=== PATIENT | female | born 1990 | race Caucasian/White ===

== ENCOUNTER 2016-07-05 09:48 | Emergency (ER) | payer BC, OTHER ==
[2016-07-05] MEDS ORDERED: KETOROLAC 30 MG/ML VIAL (J1885) As Ordered ONE (10:33)
[2016-07-05 10:45] LABS: BASO % 0.2 % (0.0-1.0); EOS # 0.1 K/mm3 (0.0-0.50); EOS % 0.9 % (0.0-3.0); LARGE UNSTAINED CELL # 0.2 K/mm3 (0.0-0.4); LARGE UNSTAINED CELL % 2.5 % (0.0-4.0); LYMPH # 1.8 K/mm3 (1.5-6.5); LYMPH % 28.5 % (24.0-44.0); MEAN CORPUSCULAR HEMOGLOBIN 30.2 pg (27.0-33.0); MEAN CORPUSCULAR VOLUME 88.9 fl (80.0-96.0); MONO # 0.6 K/mm3 (0.0-0.8); MONO % 9.3 % (0.0-5.0); NEUTROPHILS # 3.7 K/mm3 (1.8-7.7); NEUTROPHILS % 58.6 % (36.0-66.0); PLATELET COUNT, AUTOMATED 273 k/mm3 (150-450); RED CELL DISTRIBUTION WIDTH 11.6 % (11.5-14.5); WHITE BLOOD COUNT 6.3 K/mm3 (4.0-10.0)
[2016-07-05 11:09] LABS: ANION GAP 8 MEQ/L (8-16); BLOOD UREA NITROGEN 12 MG/DL (7-18); CALCIUM LEVEL 9.1 MG/DL (8.5-10.1); CARBON DIOXIDE LEVEL 29 MEQ/L (21-32); CHLORIDE LEVEL 103 MEQ/L (98-107); CREATININE FOR GFR 0.84 MG/DL (0.55-1.02); GLOMERULAR FILTRATION RATE > 60.0 (>60); GLUCOSE, FASTING 103 MG/DL (70-105); SODIUM LEVEL 140 MEQ/L (136-145)
--- NOTE | 2016-07-05 11:22 | REP ---
ABDOMINAL SERIES, 07/05/2016: INDICATION: Abdominal pain. COMPARISON: CT abdomen and pelvis 06/07/2016 which include lung bases in field of view. PA CHEST: FINDINGS: The heart is of normal size and configuration. The lungs are clear bilaterally. Bones and soft tissues are within normal limits. IMPRESSION: No acute disease. FLAT AND UPRIGHT KUB: The bowel gas pattern is nonspecific. There is moderate stool in the ascending colon and in the rectosigmoid colon. There are no abnormal air fluid levels or free intraperitoneal air. Bones and soft tissues within normal limits. IMPRESSION: Moderate stool within the colon. Nonspecific bowel gas pattern, no free intraperitoneal air. MTDD
--- NOTE | 2016-07-05 12:46 | EDDOCDS ---
Physician Documentation [facility] Name: Veronica Calabrese Age: 25 yrs Sex: Female : 1990 Arrival Date: 07/05/2016 Time: 09:48 Bed I2 / M2 Private MD: No Pcp Disposition: 07/05/16 11:50 Discharged to Home/Self Care. Impression: Chest pain on breathing, Palpitations, Hypokalemia, Hypothyroidism, unspecified - elevated TSH, Constipation, Abdominal and pelvic pain - LLQ. - Condition is Stable. - Discharge Instructions: Chest Wall Pain, Constipation, Adult, Palpitations, Hypokalemia. - Prescriptions for Ultram 50 mg Oral Tablet - take 1 tablet by ORAL route every 6 hours As needed MDD: 4 tabs; 16 tablet. Miralax 17 gram/dose - take 17 gram by ORAL route once daily As needed dilute in 8 ounces of water or juice; 1 bottle. Potassium Chloride 20 mEq Oral Tablet Extended Release - take 1 tablet by ORAL route once daily for 14 days; 14 tablet. - Medication Reconciliation, Local Pharmacy Hours form. - Follow up: Emergency Department; When: As needed; Reason: Worsening of conditions. Follow up: Private Physician; When: Call to arrange an appointment; Reason: Wound/Symptom Recheck, Recheck today's complaints, Continuance of care, recheck potassium level, evaluate thyroid function. . - Problem is an ongoing problem. - Symptoms have improved. Historical: - Allergies: Morphine; PENICILLINS; - Home Meds: 1. Ambien 10 mg oral tab once daily 2. Maxalt 10 mg oral tab as needed - PMHx: Asthma; Migraine Headaches; - PSHx: Myringotomy; - Social history: Smoking status: Patient states was never smoker of tobacco. No barriers to communication noted, The patient speaks fluent Kazakh, Speaks appropriately for age. - : The pt / caregiver states he / she is not on anticoagulants. Home medication list is obtained from the patient. - Exposure Risk Screening:: None identified. 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 4 in. (162.56 cm); Pain 8/10; 11:58 BP 119 / 72 RA Supine (auto/reg); Pulse 89; Resp 18; Temp 96.8; Pulse Ox 99% on R/A; bnb Pain 6/10; 09:50 Body Mass Index 21.46 (56.70 kg, 162.56 cm) sew MDM: 10:18 IV Saline Lock ordered. cc10 10:18 Undress patient appropriately for examination ordered. cc10 10:19 ketorolac 30 mg IVP once ordered. cc10 10:19 UCG by Nursing ordered. cc10 10:20 ECG WITH READING ER PHYS+CARDIAG ordered. EDMS 10:20 Basic Metabolic Profile Ordered. EDMS 10:20 CBC with Diff Ordered. EDMS 10:20 Cardiac Injury Profile Ordered. EDMS 10:20 D-Dimer Quant Ordered. EDMS 10:20 Troponin Ordered. EDMS 10:20 TSH w/o Free T4 Ordered. EDMS 10:20 Abdomen, Flat\E\Upright,PA Chest Ordered. EDMS 10:21 UA Ordered. EDMS 10:54 CBC with Diff Reviewed. cc10 10:54 UA Reviewed. cc10 10:54 D-Dimer Quant Reviewed. cc10 11:22 Financial registration complete. lg 11:34 Basic Metabolic Profile Reviewed. cc10 11:34 TSH w/o Free T4 Reviewed. cc10 11:34 Cardiac Injury Profile Reviewed. cc10 11:34 Troponin Reviewed. cc10 Point of Care Testing: Urine : 10:41 hCG Reading: Negative; Control Reading: Positive; mk4 Ranges: Administered Medications: 10:46 Drug: ketorolac 30 mg [ketorolac 30 mg/mL (1 mL) injection solution (1 mL)] Route: IVP; mk4 Site: left antecubital; Signatures: Dispatcher [employer] EDMS Sanjana Veliz, Reg Reg lg Mihai Maldonado RN RN mlb1 Joana Loera RN RN Kaiden Wade PA-C PA-C cc10 Eugenia Castro RN mk4 MTDD
--- NOTE | 2016-07-05 12:46 | EDDOCDS ---
Nurse's Notes [facility] Name: Veronica Calabrese Age: 25 yrs Sex: Female : 1990 Arrival Date: 07/05/2016 Time: 09:48 Bed I2 / M2 Private MD: No Pcp Diagnosis: Chest pain on breathing;Palpitations;Hypokalemia;Hypothyroidism, unspecified-elevated TSH;Constipation;Abdominal and pelvic pain-LLQ Presentation: 07/05 09:53 Presenting complaint: Patient states: Chest pain and left side abdominal pain began mlb1 Saturday night with nausea. Risk factors: the patient reports no vaginal bleeding. Adult Sepsis Screening: The patient does not have new or worsening altered mentation. Patient's respiratory rate is less than 22. Systolic blood pressure is greater than 100. Patient has a qSOFA score of 0- Negative Sepsis Screen. Suicide/Homicide risk assessment- the patient denies having any suicidal and/or homicidal ideations and does not present with any other emotional, behavioral or mental health complaints. 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 Transition of care: patient was not received from another setting of care. 09:53 Acuity: NATASHA Level 3 mlb1 09:53 Method Of Arrival: Walkin/Carried/Asstd mlb1 Triage Assessment: 09:55 General: Appears uncomfortable, Behavior is appropriate for age, cooperative. Pain: mlb1 Location: mid-sternal area, LUQ LLQ Pain currently is 8 out of 10 on a pain scale. HIV screening NA for this visit Offered previously. GI: Reports nausea. 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 Ambien 10 mg oral tab once daily 2. Maxalt 10 mg oral tab as needed - PMHx: Asthma; Migraine Headaches; - PSHx: Myringotomy; - Social history: Smoking status: Patient states was never smoker of tobacco. No barriers to communication noted, The patient speaks fluent Divehi, Speaks appropriately for age. - : The pt / caregiver states he / she is not on anticoagulants. Home medication list is obtained from the patient. - Exposure Risk Screening:: None identified. Screenin:39 Screening information is obtained from the patient. Fall risk: No risks identified. jjr Assistance ADL's: requires no assistance with activities of daily living. Abuse/DV Screen: The patient / caregiver reports he/she is: not in a situation that causes fear, pain or injury. Nutritional screening: No deficits noted. Advance Directives: There is no active DNR order. home support is adequate. Assessment: 10:37 General: Appears in no apparent distress, slender, well nourished, well groomed, jjr Behavior is appropriate for age. Cardiovascular: Chest pain quality is squeezing, is located in left chest wall is alleviated by placing pressure to region upon nurse entrance to room. Respiratory: No deficits noted. GI: Abdomen is flat, Bowel sounds present X 4 quads. Abd is soft X 4 quads Abd is tender to palpation in left lower quadrant Reports lower abdominal pain, normal bowel habits. Derm: No deficits noted. 12:44 General: Appears in no apparent distress, reports decrease in LLQ pain since arrival no jjr change in chest discomfort. Vital Signs: 09:50 BP 148 / 93; Pulse 109; Resp 16; Temp 98.5(O); Pulse Ox 100% on R/A; Weight 56.7 kg; sew Height 5 ft. 4 in. (162.56 cm); Pain 8/10; 11:58 BP 119 / 72 RA Supine (auto/reg); Pulse 89; Resp 18; Temp 96.8; Pulse Ox 99% on R/A; bnb Pain 6/10; 09:50 Body Mass Index 21.46 (56.70 kg, 162.56 cm) [facility] [place] Vitals: 09:50 Log In Time: July 05, 2016 at 09:45. [facility] [place] ED Course: 09:49 Patient visited by Laura Mock. sew 09:49 Patient moved to Waiting sew 09:50 No Pcp is Private Physician. sew 09:51 Patient visited by Laura Mock. sew 09:51 Patient moved to Pre RCE sew 09:53 Patient visited by Mihai Maldonado, SADE. mlb1 09:54 Triage Initiated mlb1 09:55 Patient visited by Mihai Maldonado, RN. mlb1 10:05 Patient moved to Triage 2 hs1 10:10 Kaiden Saldana PA-C is PHCP. cc10 10:10 Laura Waldrop MD is Attending Physician. cc10 10:10 Patient visited by Kaiden Saldana PA-C. cc10 10:10 Patient visited by Kaiden Saldana PA-C. cc10 10:26 Patient moved to I2 / M2 mk4 10:32 UA Sent. mk4 10:37 TSH w/o Free T4 Sent. jjr 10:37 Basic Metabolic Profile Sent. jjr 10:37 CBC with Diff Sent. jjr 10:37 Cardiac Injury Profile Sent. jjr 10:37 D-Dimer Quant Sent. jjr 10:37 Troponin Sent. jjr 10:38 The patient / caregiver is instructed regarding the plan of care and ED course. jjr 10:38 Inserted saline lock: 20 gauge in left antecubital area and blood collected. Labs jjr drawn. (by ED staff). Sent per order to lab. Urine collected. Clean catch specimen. Urine specimen sent to lab. 10:39 Patient visited by Joana Loera, SADE. jjr 11:00 Patient visited by Cecelia Butler, GROCERY STOCKER. rs6 11:00 EKG done. (by ED staff). Reviewed by Kaiden Saldana PA-C. rs6 11:44 Patient visited by Eugenia Castro RN. mk4 11:58 Patient visited by Kary Mcdonnell PCA. bnb 12:05 Abdomen, Flat\E\Upright,PA Chest Returned. EDMS 12:45 Patient visited by Joana Loera, SADE. jjr 12:45 Discontinued lock intact, bleeding controlled, pressure dressing applied, No jjr redness/swelling at site. No procedures done that require assistance. Administered Medications: 10:46 Drug: ketorolac 30 mg [ketorolac 30 mg/mL (1 mL) injection solution (1 mL)] Route: IVP; mk4 Site: left antecubital; Point of Care Testing: Urine : 10:41 hCG Reading: Negative; Control Reading: Positive; mk4 Ranges: Order Results: Lab Order: Basic Metabolic Profile; SPEC'M 07/05/16 10:28 Test: GLUCOSE, FASTING; Value: 103; Range: 70-105; Units: MG/DL; Status: F Test: BLOOD UREA NITROGEN; Value: 12; Range: 7-18; Units: MG/DL; Status: F Test: CREATININE FOR GFR; Value: 0.84; Range: 0.55-1.02; Units: MG/DL; Status: F Test: GLOMERULAR FILTRATION RATE; Value: > 60.0; Range: >60; Status: F Test: SODIUM LEVEL; Value: 140; Range: 136-145; Units: MEQ/L; Status: F Test: POTASSIUM SERUM; Value: 3.0; Range: 3.5-5.1; Abnormal: Below low normal; Units: MEQ/L; Status: F Test: CHLORIDE LEVEL; Value: 103; Range: 98-107; Units: MEQ/L; Status: F Test: CARBON DIOXIDE LEVEL; Value: 29; Range: 21-32; Units: MEQ/L; Status: F Test: ANION GAP; Value: 8; Range: 8-16; Units: MEQ/L; Status: F Test: CALCIUM LEVEL; Value: 9.1; Range: 8.5-10.1; Units: MG/DL; Status: F Test Note: ; Units are mL/min/1.73 m2 Chronic Kidney Disease Staging per NKF: Stage I & II GFR >=60 Normal to Mildly Decreased Stage III GFR 30-59 Moderately Decreased Stage IV GFR 15-29 Severely Decreased Stage V GFR <15 Very Little GFR Left ESRD GFR <15 on PARKING PATROLLER Lab Order: CBC with Diff; SPEC'M 07/05/16 10:28 Test: WHITE BLOOD COUNT; Value: 6.3; Range: 4.0-10.0; Units: K/mm3; Status: F Test: RED BLOOD COUNT; Value: 4.51; Range: 4.00-5.40; Units: M/mm3; Status: F Test: HEMOGLOBIN; Value: 13.6; Range: 12.0-16.0; Units: g/dl; Status: F Test: HEMATOCRIT; Value: 40.1; Range: 36.0-47.0; Units: %; Status: F Test: MEAN CORPUSCULAR VOLUME; Value: 88.9; Range: 80.0-96.0; Units: fl; Status: F Test: MEAN CORPUSCULAR HEMOGLOBIN; Value: 30.2; Range: 27.0-33.0; Units: pg; Status: F Test: MEAN CORPUSCULAR HGB CONC; Value: 34.0; Range: 32.0-36.5; Units: g/dl; Status: F Test: RED CELL DISTRIBUTION WIDTH; Value: 11.6; Range: 11.5-14.5; Units: %; Status: F Test: PLATELET COUNT, AUTOMATED; Value: 273; Range: 150-450; Units: k/mm3; Status: F Test: NEUTROPHILS %; Value: 58.6; Range: 36.0-66.0; Units: %; Status: F Test: LYMPH %; Value: 28.5; Range: 24.0-44.0; Units: %; Status: F Test: MONO %; Value: 9.3; Range: 0.0-5.0; Abnormal: Above high normal; Units: %; Status: F Test: EOS %; Value: 0.9; Range: 0.0-3.0; Units: %; Status: F Test: BASO %; Value: 0.2; Range: 0.0-1.0; Units: %; Status: F Test: LARGE UNSTAINED CELL %; Value: 2.5; Range: 0.0-4.0; Units: %; Status: F Test: NEUTROPHILS #; Value: 3.7; Range: 1.8-7.7; Units: K/mm3; Status: F Test: LYMPH #; Value: 1.8; Range: 1.5-6.5; Units: K/mm3; Status: F Test: MONO #; Value: 0.6; Range: 0.0-0.8; Units: K/mm3; Status: F Test: EOS #; Value: 0.1; Range: 0.0-0.50; Units: K/mm3; Status: F Test: BASO #; Value: 0.0; Range: 0.0-0.2; Units: K/mm3; Status: F Test: LARGE UNSTAINED CELL #; Value: 0.2; Range: 0.0-0.4; Units: K/mm3; Status: F Lab Order: Cardiac Injury Profile; SPEC'M 07/05/16 10:28 Test: CPK CREATINE PHOSPHOKINASE; Value: 36; Range: 26-192; Units: U/L; Status: F Test: CK-MB VALUE MASS; Value: 1.0; Range: 0.0-3.6; Units: NG/ML; Status: F Test: MB/CK RELATIVE INDEX; Value: 2.77; Range: < OR =4; Status: F Test Note: ; DIAGNOSIS CRITERIA MMB ng/ml Relative Index (RI) NON-AMI < or = 5 N/A BOOGIE ZONE > 5 < or = 4 AMI > 5 > 4 Lab Order: D-Dimer Quant; SPEC'M 07/05/16 10:28 Test: D-DIMER QUANT; Value: 431.4; Range: <500; Units: ng/ml; Status: F Lab Order: Troponin; SPEC'M 07/05/16 10:28 Test: TROPONIN I; Value: < 0.02; Range: < 0.10; Units: NG/ML; Status: F Test Note: ; Troponin I Reference Interval for [place] LOCI: 99th Percentile= 0.00-0.045 ng/ml Risk Stratification: <= 0.10 ng/ml Decreased Risk for Adverse Clinical Events. 0.10-1.50 ng/ml Increased Risk for Adverse Clinical Events. Evaluation of additional criterion and/or repeat testing in 2-6 hours is suggested to rule out myocardial damage. >= 1.50 ng/ml Indicative of Myocardial Injury. Lab Order: TSH w/o Free T4; SPEC'M 07/05/16 10:28 Test: THYROID STIMULATING HORMONE; Value: 5.050; Range: 0.358-3.740; Abnormal: Above high normal; Units: uIU/ML; Status: F Lab Order: UA; SPEC'M 07/05/16 10:28 Test: APPEARANCE, URINE; Value: HAZY; Range: CLEAR; Status: F Test: COLOR, URINE; Value: YELLOW; Range: YELLOW; Status: F Test: PH,URINE; Value: 5.0; Range: 5.0-9.0; Units: UNITS; Status: F Test: SPECIFIC GRAVITY URINE AUTO; Value: 1.016; Range: 1.002-1.035; Status: F Test: PROTEIN, URINE AUTO; Value: NEGATIVE; Range: NEGATIVE; Units: mg/dL; Status: F Test: GLUCOSE, URINE (UA) AUTO; Value: NEGATIVE; Range: NEGATIVE; Units: mg/dL; Status: F Test: KETONE, URINE AUTO; Value: NEGATIVE; Range: NEGATIVE; Units: mg/dL; Status: F Test: UROBILINOGEN, URINE AUTO; Value: 0.2; Range: 0.0-2.0; Units: mg/dL; Status: F Test: BILIRUBIN, URINE AUTO; Value: NEGATIVE; Range: NEGATIVE; Status: F Test: NITRITE, URINE AUTO; Value: NEGATIVE; Range: NEGATIVE; Status: F Test: LEUKOCYTE ESTERASE, URINE AUTO; Value: NEGATIVE; Range: NEGATIVE; Status: F Test: BLOOD, URINE BLOOD; Value: NEGATIVE; Range: NEGATIVE; Status: F Test: WBC, URINE AUTO; Value: 2; Range: 0-3; Units: /HPF; Status: F Test: RBC, URINE AUTO; Value: 1; Range: 0-3; Units: /HPF; Status: F Test: BACTERIA, URINE AUTO; Value: 2+; Range: NEGATIVE; Abnormal: Above high normal; Status: F Test: SQUAMOUS EPITHELIAL CELL UR AU; Value: 1; Range: 0-6; Units: /HPF; Status: F Test: MUCUS, URINE; Value: SMALL; Range: NEGATIVE; Status: F Test: HYALINE CAST, URINE AUTO; Value: 0; Range: 0-1; Units: /LPF; Status: F Radiology Order: Abdomen, Flat\E\Upright,PA Chest Test: Abdomen, Flat\E\Upright,PA Chest REASON FOR EXAMINATION: Abdomen Pain; ; ABDOMINAL SERIES, 07/05/2016:; ; INDICATION: Abdominal pain.; ; COMPARISON:; CT abdomen and pelvis 06/07/2016 which include lung bases in field of view.; ; PA CHEST:; ; FINDINGS:; The heart is of normal size and configuration. The lungs are clear bilaterally.; Bones and soft tissues are within normal limits.; ; IMPRESSION:; No acute disease.; ; FLAT AND UPRIGHT KUB:; ; The bowel gas pattern is nonspecific. There is moderate stool in the ascending; colon and in the rectosigmoid colon. There are no abnormal air fluid levels or; free intraperitoneal air. Bones and soft tissues within normal limits.; ; IMPRESSION:; Moderate stool within the colon. Nonspecific bowel gas pattern, no free; intraperitoneal air.; ; Unreviewed; Outcome: 11:50 Discharge ordered by Provider. cc 12:45 Discharge Assessment: patient administered narcotics - no. The following High Risk jjr Discharge criteria are identified: None. Discharged to home ambulatory. Condition: stable. Discharge instructions given to patient, Instructed on discharge instructions, follow up and referral plans. medication usage, Demonstrated understanding of instructions, medications, Prescriptions given X 3. No special radiology studies were completed. Property sent home with patient. 12:45 Patient left the ED. jjr Signatures: Dispatcher [employer] EDMihai Roman RN RN mlb1 Joana Loera RN RN jjr Cornelia Venegas RN RN hs1 Nish, Eugenia Aguirre RN RN mk4 Kaiden Saldana, PA-C PA-C cc10 Cecelia Butler, GROCERY STOCKER GROCERY STOCKER rs6 Kary Mcdonnell, GROCERY STOCKER GROCERY STOCKER bnb MTDD
--- NOTE | 2016-07-05 21:13 | ECGEPIP ---
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
--- NOTE | 2016-07-07 13:46 | EDDOCDS ---
Physician Documentation [facility] Name: Veronica Calabrese Age: 25 yrs Sex: Female : 1990 Arrival Date: 07/05/2016 Time: 09:48 Bed I2 / M2 Private MD: No Pcp Disposition: 07/05/16 11:50 Discharged to Home/Self Care. Impression: Chest pain on breathing, Palpitations, Hypokalemia, Hypothyroidism, unspecified - elevated TSH, Constipation, Abdominal and pelvic pain - LLQ. - Condition is Stable. - Discharge Instructions: Chest Wall Pain, Constipation, Adult, Palpitations, Hypokalemia. - Prescriptions for Ultram 50 mg Oral Tablet - take 1 tablet by ORAL route every 6 hours As needed MDD: 4 tabs; 16 tablet. Miralax 17 gram/dose - take 17 gram by ORAL route once daily As needed dilute in 8 ounces of water or juice; 1 bottle. Potassium Chloride 20 mEq Oral Tablet Extended Release - take 1 tablet by ORAL route once daily for 14 days; 14 tablet. - Medication Reconciliation, Local Pharmacy Hours form. - Follow up: Emergency Department; When: As needed; Reason: Worsening of conditions. Follow up: Private Physician; When: Call to arrange an appointment; Reason: Wound/Symptom Recheck, Recheck today's complaints, Continuance of care, recheck potassium level, evaluate thyroid function. . - Problem is an ongoing problem. - Symptoms have improved. Historical: - Allergies: Morphine; PENICILLINS; - Home Meds: 1. Ambien 10 mg oral tab once daily 2. Maxalt 10 mg oral tab as needed - PMHx: Asthma; Migraine Headaches; - PSHx: Myringotomy; - Social history: Smoking status: Patient states was never smoker of tobacco. No barriers to communication noted, The patient speaks fluent Croatian, Speaks appropriately for age. - : The pt / caregiver states he / she is not on anticoagulants. Home medication list is obtained from the patient. - Exposure Risk Screening:: None identified. 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 4 in. (162.56 cm); Pain 8/10; 11:58 BP 119 / 72 RA Supine (auto/reg); Pulse 89; Resp 18; Temp 96.8; Pulse Ox 99% on R/A; bnb Pain 6/10; 09:50 Body Mass Index 21.46 (56.70 kg, 162.56 cm) sew MDM: 10:18 IV Saline Lock ordered. cc10 10:18 Undress patient appropriately for examination ordered. cc10 10:19 ketorolac 30 mg IVP once ordered. cc10 10:19 UCG by Nursing ordered. cc10 10:20 ECG WITH READING ER PHYS+CARDIAG ordered. EDMS 10:20 Basic Metabolic Profile Ordered. EDMS 10:20 CBC with Diff Ordered. EDMS 10:20 Cardiac Injury Profile Ordered. EDMS 10:20 D-Dimer Quant Ordered. EDMS 10:20 Troponin Ordered. EDMS 10:20 TSH w/o Free T4 Ordered. EDMS 10:20 Abdomen, Flat\E\Upright,PA Chest Ordered. EDMS 10:21 UA Ordered. EDMS 10:54 CBC with Diff Reviewed. cc10 10:54 UA Reviewed. cc10 10:54 D-Dimer Quant Reviewed. cc10 11:22 Financial registration complete. lg 11:34 Basic Metabolic Profile Reviewed. cc10 11:34 TSH w/o Free T4 Reviewed. cc10 11:34 Cardiac Injury Profile Reviewed. cc10 11:34 Troponin Reviewed. cc10 13:29 [facility] Payment Agreement was scanned into [employer] and attached to record. lg 14:48 T-Sheet-- Draft Copy was scanned into [employer] and attached to record. gb 14:48 ECG/EKG was scanned into [employer] and attached to record. Point of Care Testing: Urine : 10:41 hCG Reading: Negative; Control Reading: Positive; mk4 Ranges: Administered Medications: 10:46 Drug: ketorolac 30 mg [ketorolac 30 mg/mL (1 mL) injection solution (1 mL)] Route: IVP; mk4 Site: left antecubital; Signatures: Dispatcher [employer] EDMS Betty Barton, Reg Reg gb Sanjana Veliz, Reg Reg lg Mihai Maldonado RN RN mlb1 Joana Loera RN RN jjr Kaiden Saldana PA-C PALcC cc10 Eugenia Castro RN mk4 The chart was reviewed and I authenticate all verbal orders and agree with the evaluation and treatment provided.Attachments: 13:29 [facility] [place] Payment Agreement lg 14:48 T-Sheet-- Draft Copy gb 14:48 ECG/EKG gb Chart Complete MTDD
--- NOTE | 2016-07-07 13:46 | EDDOCDS ---
Nurse's Notes [facility] Name: Veronica Cuevas Age: 25 yrs Sex: Female : 1990 Arrival Date: 07/05/2016 Time: 09:48 Bed I2 / M2 Private MD: No Pcp Diagnosis: Chest pain on breathing;Palpitations;Hypokalemia;Hypothyroidism, unspecified-elevated TSH;Constipation;Abdominal and pelvic pain-LLQ Presentation: 07/05 09:53 Presenting complaint: Patient states: Chest pain and left side abdominal pain began mlb1 Saturday night with nausea. Risk factors: the patient reports no vaginal bleeding. Adult Sepsis Screening: The patient does not have new or worsening altered mentation. Patient's respiratory rate is less than 22. Systolic blood pressure is greater than 100. Patient has a qSOFA score of 0- Negative Sepsis Screen. Suicide/Homicide risk assessment- the patient denies having any suicidal and/or homicidal ideations and does not present with any other emotional, behavioral or mental health complaints. 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 Transition of care: patient was not received from another setting of care. 09:53 Acuity: NATASHA Level 3 mlb1 09:53 Method Of Arrival: Walkin/Carried/Asstd mlb1 Triage Assessment: 09:55 General: Appears uncomfortable, Behavior is appropriate for age, cooperative. Pain: mlb1 Location: mid-sternal area, LUQ LLQ Pain currently is 8 out of 10 on a pain scale. HIV screening NA for this visit Offered previously. GI: Reports nausea. 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 Ambien 10 mg oral tab once daily 2. Maxalt 10 mg oral tab as needed - PMHx: Asthma; Migraine Headaches; - PSHx: Myringotomy; - Social history: Smoking status: Patient states was never smoker of tobacco. No barriers to communication noted, The patient speaks fluent Slovak, Speaks appropriately for age. - : The pt / caregiver states he / she is not on anticoagulants. Home medication list is obtained from the patient. - Exposure Risk Screening:: None identified. Screenin:39 Screening information is obtained from the patient. Fall risk: No risks identified. jjr Assistance ADL's: requires no assistance with activities of daily living. Abuse/DV Screen: The patient / caregiver reports he/she is: not in a situation that causes fear, pain or injury. Nutritional screening: No deficits noted. Advance Directives: There is no active DNR order. home support is adequate. Assessment: 10:37 General: Appears in no apparent distress, slender, well nourished, well groomed, jjr Behavior is appropriate for age. Cardiovascular: Chest pain quality is squeezing, is located in left chest wall is alleviated by placing pressure to region upon nurse entrance to room. Respiratory: No deficits noted. GI: Abdomen is flat, Bowel sounds present X 4 quads. Abd is soft X 4 quads Abd is tender to palpation in left lower quadrant Reports lower abdominal pain, normal bowel habits. Derm: No deficits noted. 12:44 General: Appears in no apparent distress, reports decrease in LLQ pain since arrival no jjr change in chest discomfort. Vital Signs: 09:50 BP 148 / 93; Pulse 109; Resp 16; Temp 98.5(O); Pulse Ox 100% on R/A; Weight 56.7 kg; sew Height 5 ft. 4 in. (162.56 cm); Pain 8/10; 11:58 BP 119 / 72 RA Supine (auto/reg); Pulse 89; Resp 18; Temp 96.8; Pulse Ox 99% on R/A; bnb Pain 6/10; 09:50 Body Mass Index 21.46 (56.70 kg, 162.56 cm) [facility] [place] Vitals: 09:50 Log In Time: July 05, 2016 at 09:45. [facility] [place] ED Course: 09:49 Patient visited by Laura Mock. sew 09:49 Patient moved to Waiting sew 09:50 No Pcp is Private Physician. sew 09:51 Patient visited by Laura Mock. sew 09:51 Patient moved to Pre RCE sew 09:53 Patient visited by Mihai Maldonado, SADE. mlb1 09:54 Triage Initiated mlb1 09:55 Patient visited by Mihai Maldonado, RN. mlb1 10:05 Patient moved to Triage 2 hs1 10:10 Kaiden Saldana PA-C is PHCP. cc10 10:10 Laura Waldrop MD is Attending Physician. cc10 10:10 Patient visited by Kaiden Saldana PA-C. cc10 10:10 Patient visited by Kaiden Saldana PA-C. cc10 10:26 Patient moved to I2 / M2 mk4 10:32 UA Sent. mk4 10:37 TSH w/o Free T4 Sent. jjr 10:37 Basic Metabolic Profile Sent. jjr 10:37 CBC with Diff Sent. jjr 10:37 Cardiac Injury Profile Sent. jjr 10:37 D-Dimer Quant Sent. jjr 10:37 Troponin Sent. jjr 10:38 The patient / caregiver is instructed regarding the plan of care and ED course. jjr 10:38 Inserted saline lock: 20 gauge in left antecubital area and blood collected. Labs jjr drawn. (by ED staff). Sent per order to lab. Urine collected. Clean catch specimen. Urine specimen sent to lab. 10:39 Patient visited by Joana Loera RN. jjr 11:00 Patient visited by Cecelia Butler, HISTOLOGICAL ILLUSTRATOR. rs6 11:00 EKG done. (by ED staff). Reviewed by Kaiden Saldana PA-C. rs6 11:44 Patient visited by Eugenia Castro RN. mk4 11:58 Patient visited by Kary Mcdonnell, HISTOLOGICAL ILLUSTRATOR. bnb 12:05 Abdomen, Flat\E\Upright,PA Chest Returned. EDMS 12:45 Patient visited by Joana Loera, SADE. jjr 12:45 Discontinued lock intact, bleeding controlled, pressure dressing applied, No jjr redness/swelling at site. No procedures done that require assistance. 13:28 Patient name changed from Veronica\S\Su\S\Cuevas\S\ to Veronica\S\ \S\Cuevas. EDMS 13:29 [facility] Payment Agreement was scanned into Flumes and attached to record. lg 14:48 T-Sheet-- Draft Copy was scanned into Flumes and attached to record. gb 14:48 ECG/EKG was scanned into Flumes and attached to record. gb 21:58 EKG-ADULT Returned. EDMS Administered Medications: 10:46 Drug: ketorolac 30 mg [ketorolac 30 mg/mL (1 mL) injection solution (1 mL)] Route: IVP; mk4 Site: left antecubital; Point of Care Testing: Urine : 10:41 hCG Reading: Negative; Control Reading: Positive; 4 Ranges: Order Results: Lab Order: Basic Metabolic Profile; SPEC'M 07/05/16 10:28 Test: GLUCOSE, FASTING; Value: 103; Range: 70-105; Units: MG/DL; Status: F Test: BLOOD UREA NITROGEN; Value: 12; Range: 7-18; Units: MG/DL; Status: F Test: CREATININE FOR GFR; Value: 0.84; Range: 0.55-1.02; Units: MG/DL; Status: F Test: GLOMERULAR FILTRATION RATE; Value: > 60.0; Range: >60; Status: F Test: SODIUM LEVEL; Value: 140; Range: 136-145; Units: MEQ/L; Status: F Test: POTASSIUM SERUM; Value: 3.0; Range: 3.5-5.1; Abnormal: Below low normal; Units: MEQ/L; Status: F Test: CHLORIDE LEVEL; Value: 103; Range: 98-107; Units: MEQ/L; Status: F Test: CARBON DIOXIDE LEVEL; Value: 29; Range: 21-32; Units: MEQ/L; Status: F Test: ANION GAP; Value: 8; Range: 8-16; Units: MEQ/L; Status: F Test: CALCIUM LEVEL; Value: 9.1; Range: 8.5-10.1; Units: MG/DL; Status: F Test Note: ; Units are mL/min/1.73 m2 Chronic Kidney Disease Staging per NKF: Stage I & II GFR >=60 Normal to Mildly Decreased Stage III GFR 30-59 Moderately Decreased Stage IV GFR 15-29 Severely Decreased Stage V GFR <15 Very Little GFR Left ESRD GFR <15 on ELECTRICAL TESTS SUPERVISOR Lab Order: CBC with Diff; SPEC'M 07/05/16 10:28 Test: WHITE BLOOD COUNT; Value: 6.3; Range: 4.0-10.0; Units: K/mm3; Status: F Test: RED BLOOD COUNT; Value: 4.51; Range: 4.00-5.40; Units: M/mm3; Status: F Test: HEMOGLOBIN; Value: 13.6; Range: 12.0-16.0; Units: g/dl; Status: F Test: HEMATOCRIT; Value: 40.1; Range: 36.0-47.0; Units: %; Status: F Test: MEAN CORPUSCULAR VOLUME; Value: 88.9; Range: 80.0-96.0; Units: fl; Status: F Test: MEAN CORPUSCULAR HEMOGLOBIN; Value: 30.2; Range: 27.0-33.0; Units: pg; Status: F Test: MEAN CORPUSCULAR HGB CONC; Value: 34.0; Range: 32.0-36.5; Units: g/dl; Status: F Test: RED CELL DISTRIBUTION WIDTH; Value: 11.6; Range: 11.5-14.5; Units: %; Status: F Test: PLATELET COUNT, AUTOMATED; Value: 273; Range: 150-450; Units: k/mm3; Status: F Test: NEUTROPHILS %; Value: 58.6; Range: 36.0-66.0; Units: %; Status: F Test: LYMPH %; Value: 28.5; Range: 24.0-44.0; Units: %; Status: F Test: MONO %; Value: 9.3; Range: 0.0-5.0; Abnormal: Above high normal; Units: %; Status: F Test: EOS %; Value: 0.9; Range: 0.0-3.0; Units: %; Status: F Test: BASO %; Value: 0.2; Range: 0.0-1.0; Units: %; Status: F Test: LARGE UNSTAINED CELL %; Value: 2.5; Range: 0.0-4.0; Units: %; Status: F Test: NEUTROPHILS #; Value: 3.7; Range: 1.8-7.7; Units: K/mm3; Status: F Test: LYMPH #; Value: 1.8; Range: 1.5-6.5; Units: K/mm3; Status: F Test: MONO #; Value: 0.6; Range: 0.0-0.8; Units: K/mm3; Status: F Test: EOS #; Value: 0.1; Range: 0.0-0.50; Units: K/mm3; Status: F Test: BASO #; Value: 0.0; Range: 0.0-0.2; Units: K/mm3; Status: F Test: LARGE UNSTAINED CELL #; Value: 0.2; Range: 0.0-0.4; Units: K/mm3; Status: F Lab Order: Cardiac Injury Profile; [facility] 07/05/16 Test: CPK CREATINE PHOSPHOKINASE; Value: 36; Range: 26-192; Units: U/L; Status: F Test: CK-MB VALUE MASS; Value: 1.0; Range: 0.0-3.6; Units: NG/ML; Status: F Test: MB/CK RELATIVE INDEX; Value: 2.77; Range: < OR =4; Status: F Test Note: ; DIAGNOSIS CRITERIA MMB ng/ml Relative Index (RI) NON-AMI < or = 5 N/A BOO[place]IE ZONE > 5 < or = 4 AMI > 5 > 4 Lab Order: D-Dimer Quant; 07/05/16 Test: D-DIMER QUANT; Value: 431.4; Range: <500; Units: ng/ml; Status: F Lab Order: Troponin; 07/05/16 Test: TROPONIN I; Value: < 0.02; Range: < 0.10; Units: NG/ML; Status: F Test Note: ; Troponin I Reference Interval for Firework LOCI: 99th Percentile= 0.00-0.045 ng/ml Risk Stratification: <= 0.10 ng/ml Decreased Risk for Adverse Clinical Events. 0.10-1.50 ng/ml Increased Risk for Adverse Clinical Events. Evaluation of additional criterion and/or repeat testing in 2-6 hours is suggested to rule out myocardial damage. >= 1.50 ng/ml Indicative of Myocardial Injury. Lab Order: TSH w/o Free T4; SPEC07/05/16 10: Test: THYROID STIMULATING HORMONE; Value: 5.050; Range: 0.358-3.740; Abnormal: Above high normal; Units: uIU/ML; Status: F Lab Order: UA; SPEC' 07/05/16: Test: APPEARANCE, URINE; Value: HAZY; Range: CLEAR; Status: F Test: COLOR, URINE; Value: YELLOW; Range: YELLOW; Status: F Test: PH,URINE; Value: 5.0; Range: 5.0-9.0; Units: UNITS; Status: F Test: SPECIFIC GRAVITY URINE AUTO; Value: 1.016; Range: 1.002-1.035; Status: F Test: PROTEIN, URINE AUTO; Value: NEGATIVE; Range: NEGATIVE; Units: mg/dL; Status: F Test: GLUCOSE, URINE (UA) AUTO; Value: NEGATIVE; Range: NEGATIVE; Units: mg/dL; Status: F Test: KETONE, URINE AUTO; Value: NEGATIVE; Range: NEGATIVE; Units: mg/dL; Status: F Test: UROBILINOGEN, URINE AUTO; Value: 0.2; Range: 0.0-2.0; Units: mg/dL; Status: F Test: BILIRUBIN, URINE AUTO; Value: NEGATIVE; Range: NEGATIVE; Status: F Test: NITRITE, URINE AUTO; Value: NEGATIVE; Range: NEGATIVE; Status: F Test: LEUKOCYTE ESTERASE, URINE AUTO; Value: NEGATIVE; Range: NEGATIVE; Status: F Test: BLOOD, URINE BLOOD; Value: NEGATIVE; Range: NEGATIVE; Status: F Test: WBC, URINE AUTO; Value: 2; Range: 0-3; Units: /HPF; Status: F Test: RBC, URINE AUTO; Value: 1; Range: 0-3; Units: /HPF; Status: F Test: BACTERIA, URINE AUTO; Value: 2+; Range: NEGATIVE; Abnormal: Above high normal; Status: F Test: SQUAMOUS EPITHELIAL CELL UR AU; Value: 1; Range: 0-6; Units: /HPF; Status: F Test: MUCUS, URINE; Value: SMALL; Range: NEGATIVE; Status: F Test: HYALINE CAST, URINE AUTO; Value: 0; Range: 0-1; Units: /LPF; Status: F Radiology Order: EKG-ADULT Test: EKG-ADULT REASON FOR EXAMINATION: Chest Pain; Stationary ECG Study; [facility] - ED; ; Test Date: 2016-07-05; Pat Name: VERONICA CUEVAS Department:; Room: -; 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; : 1990 Requested By: Kaiden Saldana PA-C; Order Number: [id number] Reading MD: Jimmy Stafford; Measurements; Intervals [place]; Rate: 88 P: 67; CA: 134 QRS: 63; QRSD: 88 T: 48; QT: 337; QTc: 408; Interpretive Statements; SINUS RHYTHM; ; Electronically Signed On 07-05-2016 21:12:50 EST by Jimmy Stafford; Radiology Order: Abdomen, Flat\E\Upright,PA Chest Test: Abdomen, Flat\E\Upright,PA Chest REASON FOR EXAMINATION: Abdomen Pain; ; ABDOMINAL SERIES, 07/05/2016:; ; INDICATION: Abdominal pain.; ; COMPARISON:; CT abdomen and pelvis 06/07/2016 which include lung bases in field of view.; ; PA CHEST:; ; FINDINGS:; The heart is of normal size and configuration. The lungs are clear bilaterally.; Bones and soft tissues are within normal limits.; ; IMPRESSION:; No acute disease.; ; ; FLAT AND UPRIGHT KUB:; ; The bowel gas pattern is nonspecific. There is moderate stool in the ascending; colon and in the rectosigmoid colon. There are no abnormal air fluid levels or; free intraperitoneal air. Bones and soft tissues within normal limits.; ; IMPRESSION:; Moderate stool within the colon. Nonspecific bowel gas pattern, no free; intraperitoneal air.; ; ; MTDD Outcome: 11:50 Discharge ordered by Provider. cc10 12:45 Discharge Assessment: patient administered narcotics - no. The following High Risk jjr Discharge criteria are identified: None. Discharged to home ambulatory. Condition: stable. Discharge instructions given to patient, Instructed on discharge instructions, follow up and referral plans. medication usage, Demonstrated understanding of instructions, medications, Prescriptions given X 3. No special radiology studies were completed. Property sent home with patient. 12:45 Patient left the ED. jjr Signatures: Dispatcher [employer] EDAZ Betty Barton, Reg Reg gb Sanjana Veliz, Reg Reg lg Mihai Maldonado RN RN mlb1 Joana Loera RN RN jjr Cornelia Venegas RN RN hs1 Laura Mock Margaret, RN RN mk4 Kaiden Saldana, PA-C PA-C cc10 Cecelia Butler, HISTOLOGICAL ILLUSTRATOR HISTOLOGICAL ILLUSTRATOR rs6 Kary Mcdonnell, HISTOLOGICAL ILLUSTRATOR HISTOLOGICAL ILLUSTRATOR bnb Chart Complete MTDD
--- NOTE | 2016-07-07 13:46 | EDDOCDS ---
Physician Documentation [facility] Name: Veronica Calabrese Age: 25 yrs Sex: Female : 1990 Arrival Date: 07/05/2016 Time: 09:48 Bed I2 / M2 Private MD: No Pcp Disposition: 07/05/16 11:50 Discharged to Home/Self Care. Impression: Chest pain on breathing, Palpitations, Hypokalemia, Hypothyroidism, unspecified - elevated TSH, Constipation, Abdominal and pelvic pain - LLQ. - Condition is Stable. - Discharge Instructions: Chest Wall Pain, Constipation, Adult, Palpitations, Hypokalemia. - Prescriptions for Ultram 50 mg Oral Tablet - take 1 tablet by ORAL route every 6 hours As needed MDD: 4 tabs; 16 tablet. Miralax 17 gram/dose - take 17 gram by ORAL route once daily As needed dilute in 8 ounces of water or juice; 1 bottle. Potassium Chloride 20 mEq Oral Tablet Extended Release - take 1 tablet by ORAL route once daily for 14 days; 14 tablet. - Medication Reconciliation, Local Pharmacy Hours form. - Follow up: Emergency Department; When: As needed; Reason: Worsening of conditions. Follow up: Private Physician; When: Call to arrange an appointment; Reason: Wound/Symptom Recheck, Recheck today's complaints, Continuance of care, recheck potassium level, evaluate thyroid function. . - Problem is an ongoing problem. - Symptoms have improved. Historical: - Allergies: Morphine; PENICILLINS; - Home Meds: 1. Ambien 10 mg oral tab once daily 2. Maxalt 10 mg oral tab as needed - PMHx: Asthma; Migraine Headaches; - PSHx: Myringotomy; - Social history: Smoking status: Patient states was never smoker of tobacco. No barriers to communication noted, The patient speaks fluent Romanian, Speaks appropriately for age. - : The pt / caregiver states he / she is not on anticoagulants. Home medication list is obtained from the patient. - Exposure Risk Screening:: None identified. 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 4 in. (162.56 cm); Pain 8/10; 11:58 BP 119 / 72 RA Supine (auto/reg); Pulse 89; Resp 18; Temp 96.8; Pulse Ox 99% on R/A; bnb Pain 6/10; 09:50 Body Mass Index 21.46 (56.70 kg, 162.56 cm) sew MDM: 10:18 IV Saline Lock ordered. cc10 10:18 Undress patient appropriately for examination ordered. cc10 10:19 ketorolac 30 mg IVP once ordered. cc10 10:19 UCG by Nursing ordered. cc10 10:20 ECG WITH READING ER PHYS+CARDIAG ordered. EDMS 10:20 Basic Metabolic Profile Ordered. EDMS 10:20 CBC with Diff Ordered. EDMS 10:20 Cardiac Injury Profile Ordered. EDMS 10:20 D-Dimer Quant Ordered. EDMS 10:20 Troponin Ordered. EDMS 10:20 TSH w/o Free T4 Ordered. EDMS 10:20 Abdomen, Flat\E\Upright,PA Chest Ordered. EDMS 10:21 UA Ordered. EDMS 10:54 CBC with Diff Reviewed. cc10 10:54 UA Reviewed. cc10 10:54 D-Dimer Quant Reviewed. cc10 11:22 Financial registration complete. lg 11:34 Basic Metabolic Profile Reviewed. cc10 11:34 TSH w/o Free T4 Reviewed. cc10 11:34 Cardiac Injury Profile Reviewed. cc10 11:34 Troponin Reviewed. cc10 13:29 [facility] Payment Agreement was scanned into Emida and attached to record. lg 14:48 T-Sheet-- Draft Copy was scanned into Emida and attached to record. gb 14:48 ECG/EKG was scanned into [employer] and attached to record. Point of Care Testing: Urine : 10:41 hCG Reading: Negative; Control Reading: Positive; mk4 Ranges: Administered Medications: 10:46 Drug: ketorolac 30 mg [ketorolac 30 mg/mL (1 mL) injection solution (1 mL)] Route: IVP; mk4 Site: left antecubital; Signatures: Dispatcher [employer] EDMS Betty Barton, Reg Reg gb Sanjana Veliz, Reg Reg lg Mihai Maldonado RN RN mlb1 Joana Loera RN RN jjr Kaiden Saldana PA-C PALcC cc10 Eugenia Castro RN mk4 The chart was reviewed and I authenticate all verbal orders and agree with the evaluation and treatment provided.Attachments: 13:29 [facility] Payment Agreement lg 14:48 T-Sheet-- Draft Copy gb 14:48 ECG/EKG gb Chart Complete MTDD
== END 2016-07-05 12:45 | disposition home or self-care (01) ==
LOC: M ED 09:48
DX: R07.89 Other chest pain (principal); E87.6 Hypokalemia; R00.2 Palpitations; E03.9 Hypothyroidism, unspecified; R10.32 Left lower quadrant pain; K59.00 Constipation, unspecified; G43.909 Migraine, unspecified, not intractable, without status migrainosus; J45.909 Unspecified asthma, uncomplicated; Z79.899 Other long term (current) drug therapy; Z88.5 Allergy status to narcotic agent; Z88.0 Allergy status to penicillin
CPT/HCPCS: 36415; 74022; 80048; 81001; 81025; 82550; 82553; 84443; 85025; 85379; 93005; 96374; 99284; J1885

== ENCOUNTER → 2016-07-09 | Outpatient (CLI) | payer OTHER ==
[2016-07-09 14:38] LABS: ALKALINE PHOSPHATASE 43 U/L (45-117); ALT/SGPT 20 U/L (12-78); ANION GAP 8 MEQ/L (8-16); AST/SGOT 17 U/L (15-37); BLOOD UREA NITROGEN 11 MG/DL (7-18); CALCIUM LEVEL 9.1 MG/DL (8.5-10.1); CARBON DIOXIDE LEVEL 28 MEQ/L (21-32); CHLORIDE LEVEL 105 MEQ/L (98-107); CREATININE FOR GFR 0.68 MG/DL (0.55-1.02); GLOMERULAR FILTRATION RATE > 60.0 (>60); GLUCOSE, FASTING 92 MG/DL (70-105); POTASSIUM SERUM 3.9 MEQ/L (3.5-5.1); SODIUM LEVEL 141 MEQ/L (136-145)
[2016-07-09 14:39] LABS: ALBUMIN 4.3 GM/DL (3.2-5.2); BILIRUBIN,TOTAL 0.6 MG/DL (0.2-1.0); FREE T4 1.02 NG/DL (0.76-1.46); MAGNESIUM LEVEL 1.9 MG/DL (1.8-2.4); TOTAL PROTEIN 7.6 GM/DL (6.4-8.2)
== END | disposition home or self-care (01) ==
LOC: M SMT 10:16
PROVIDERS: ATTEND Physician Assistant
DX: E87.6 Hypokalemia (principal); R94.6 Abnormal results of thyroid function studies

== ENCOUNTER → 2016-10-20 | Outpatient (REF) | payer OTHER | LOC: M SFHCLERA 17:22 | PROVIDERS: ATTEND Nurse Practitioner Family | DX: R10.30 Lower abdominal pain, unspecified (principal) ==

== ENCOUNTER → 2016-11-08 | Outpatient (REF) | payer OTHER | LOC: M LAB REF 10:07 | PROVIDERS: ATTEND Advanced Practice Midwife | DX: R30.0 Dysuria (principal) ==

== ENCOUNTER → 2016-11-15 | Outpatient (REF) | payer OTHER | LOC: M LAB REF 06:06 | PROVIDERS: ATTEND Advanced Practice Midwife | DX: R30.0 Dysuria (principal) ==

== ENCOUNTER → 2016-11-22 | Outpatient (REF) | payer OTHER | LOC: M LAB REF 12:39 | PROVIDERS: ATTEND Advanced Practice Midwife | DX: R30.0 Dysuria (principal) ==

== ENCOUNTER → 2017-08-09 | Outpatient (CLI) | payer OTHER ==
[2017-08-09 13:58] LABS: BASO % 0.3 % (0.0-1.0); EOS % 0.3 % (0.0-3.0); HEMATOCRIT 37.6 % (36.0-47.0); HEMOGLOBIN 12.4 g/dl (12.0-16.0); IMMATURE GRANULOCYTE % 0.2 % (0-3.0); LYMPH % 30.4 % (24.0-44.0); MEAN CORPUSCULAR VOLUME 88.1 fl (80.0-96.0); MONO # 0.6 10^3/uL (0.0-0.8); MONO % 9.6 % (0.0-5.0); NEUTROPHILS # 3.9 10^3/uL (1.8-7.7); NEUTROPHILS % 59.2 % (36.0-66.0); PLATELET COUNT, AUTOMATED 226 10^3/uL (150-450); RED BLOOD COUNT 4.27 10^6/uL (4.00-5.40); RED CELL DISTRIBUTION WIDTH 12.7 % (11.5-14.5); WHITE BLOOD COUNT 6.5 10^3/uL (4.0-10.0)
[2017-08-09 14:32] LABS: ALBUMIN 4.4 GM/DL (3.2-5.2); ALBUMIN/GLOBULIN RATIO 1.63 (1.00-1.93); ALKALINE PHOSPHATASE 38 U/L (45-117); ALT/SGPT 19 U/L (12-78); ANION GAP 6 MEQ/L (8-16); AST/SGOT 15 U/L (7-37); BILIRUBIN,TOTAL 1.3 MG/DL (0.2-1.0); BLOOD UREA NITROGEN 14 MG/DL (7-18); CARBON DIOXIDE LEVEL 28 MEQ/L (21-32); CHLORIDE LEVEL 106 MEQ/L (98-107); CREATININE FOR GFR 0.64 MG/DL (0.55-1.30); FREE T4 1.23 NG/DL (0.76-1.46); GLOMERULAR FILTRATION RATE > 60.0 (>60); GLUCOSE, FASTING 86 MG/DL (70-100); POTASSIUM SERUM 4.1 MEQ/L (3.5-5.1); SODIUM LEVEL 140 MEQ/L (136-145); THYROID STIMULATING HORMONE 0.423 uIU/ML (0.358-3.740); TOTAL PROTEIN 7.1 GM/DL (6.4-8.2)
== END ==
LOC: M SMT 08:03
DX: R00.0 Tachycardia, unspecified (principal)